=== PATIENT | female | born 1955 | race Caucasian/White ===

== ENCOUNTER 2019-05-05 07:21 | Outpatient (CLI) | payer OTHER | END 2019-05-05 07:23 | disposition home or self-care (01) | LOC: SONOGRAMA 07:21 | DX: E04.2 Nontoxic multinodular goiter (principal) ==

== ENCOUNTER 2022-12-24 08:08 | Outpatient (CLI) | payer OTHER | END 2022-12-24 08:12 | disposition home or self-care (01) | LOC: SONOGRAMA 08:08 | PROVIDERS: ATTEND Pathology Anatomic Pathology & Clinical Pathology | DX: D34 Benign neoplasm of thyroid gland (principal); E04.1 Nontoxic single thyroid nodule; E07.9 Disorder of thyroid, unspecified; E04.2 Nontoxic multinodular goiter ==

== ENCOUNTER 2024-06-15 08:04 | Outpatient (CLI) | payer OTHER | END 2024-06-15 08:08 | disposition home or self-care (01) | LOC: SONOGRAMA 08:04 | PROVIDERS: ATTEND Pathology Anatomic Pathology | DX: D34 Benign neoplasm of thyroid gland (principal); E07.89 Other specified disorders of thyroid; E04.2 Nontoxic multinodular goiter ==